=== PATIENT | female | born 1965 | race African-American/Black ===

== ENCOUNTER 2016-08-13 10:07 | Day surgery (SDC) | payer OTHER ==
[~2016-08-13] VITALS: Ht 165.1 cm; Wt 65.6 kg
[~2016-08-13 10:07] MED LIST: IRON325T2 PO; LISI10TA PO; NAPR-576 PO; OMEP20TA PO; PRED5TAB PO
[2016-08-13] MEDS ORDERED: NS 1000P @30 MLS/HR (KVO) IV SCH (11:00)
[2016-08-13 11:16] VITALS: BP 121/87; PULSE 77; RESP 18; TEMP 98.3; O2SAT 97
[2016-08-13] MEDS ORDERED: MILL5PAK (11:23)
[2016-08-13] MEDS ORDERED: AMLO10 PO (11:23)
[2016-08-13] MEDS ORDERED: OMEP20TA PO (11:23)
[2016-08-13] MEDS ORDERED: METH2.5T PO (11:23)
[2016-08-13] MEDS ORDERED: TRAM50TA PO (11:23)
[2016-08-13] MEDS ORDERED: VENTAER INH (11:23)
[2016-08-13] MEDS ORDERED: DICL50TA PO (11:23)
[2016-08-13 11:28] LABS: BASOPHIL % 0.6 % (0.0-2.0); EOSINOPHIL # 0.1 TH/MM3 (0-0.4); HEMATOCRIT 39.3 % (35.0-46.0); HEMO FLAGS DIFF FINAL; LYMPH % 36.9 % (9.0-44.0); LYMPHOCYTE # 1.5 TH/MM3 (1.0-4.8); MEAN CELL VOLUME 93.5 FL (80.0-100.0); MEAN CORPUSCULAR HEMOGLOBIN 31.3 PG (27.0-34.0); MEAN CORPUSCULAR HGB CONC 33.4 % (32.0-36.0); MONO % 12.1 % (0.0-8.0); NEUT % 48.4 % (16.0-70.0); PLATELET COUNT 221 TH/MM3 (150-450); RED CELL DISTRIBUTION WIDTH 13.1 % (11.6-17.2); WHITE BLOOD COUNT 4.1 TH/MM3 (4.0-11.0)
[2016-08-13 11:41] LABS: APTT (PATIENT) 26.4 SEC (24.3-30.1); PROTHROMBIN TIME - PATIENT 11.1 SEC (9.8-11.6)
[2016-08-13 11:57] LABS: BICARBONATE 28.6 MEQ/L (21.0-32.0)
[2016-08-13] MEDS ORDERED: HEPARIN-NS/PF INJ 500 ML ONE (12:06)
[2016-08-13] MEDS ORDERED: diphenhydrAMINE HCL 50 MG/ML VIAL ONE (12:31)
[2016-08-13] MEDS ORDERED: methylPREDNISolone SOD SUCC 125 MG/2 ML VIAL ONE (12:31)
[2016-08-13] MEDS ORDERED: SODIUM CHLORIDE 0.9% FLUSH 10 ML FLUSH PRN (13:00)
[2016-08-13] MEDS ORDERED: MISC INFORMATION XX ONE (13:00)
--- NOTE | 2016-08-13 13:07 | CATHPROC ---
Mas Con Movil HIS Report Study Information Study Number Admission Scheduled Start Study Start 1063Aug 13 2016 10:07AM 08/13/2016 Aug 13 2016 11:56AM [place] [facility] Cardiac Catheterization Admit Source Facility Department Other [facility] - Quality Control Scientist Physician and Clinical Staff Initial Celestino Roe Picker Operatorjerri Tineo RN, Keegan RecordMirtha Arnold,WATER FILTER CLEANER TECH2 Scrub Ronak Redd RCIS(BS) Procedures Performed Procedure Location (Site) Vessel Name Coronary Angiograms LCA Left Coronary Coronary Angiograms RCA Right Coronary LV Gram-hand inj. LV LV Ventricle Equipment Time Ballet Professor Description Size Mfg Part Number Used/Scraped [id number] 12:07 MARQUEZ YAO SWAN NAUN CATHETER FR 7 Used *[id number] TRANSDUCER, TRUWAVE [id number] 11:56 MARQUEZ YAO * Used W/STOCKCOCK *[id number] TRANSDUCER, TRUWAVE [id number] 11:56 MARQUEZ YAO * Used W/STOCKCOCK *[id number] 538-420 *[id number] [id number] *[id number] 11:56 MEDLINE IND[employer] PACK, CCL CUSTOM * Used *[id number] 11:56 Sopogy PACER PEN, SKIN DUAL W/ RULER * Used *[id number] 11:56 miCab MEDICAL WIRE, 3MMJ .035 180CM 180CM Used *[id number] 11:56 NAMIC MANIFOLD, 2 PORT * Used *[id number] 11:56 NAMIC MANIFOLD, 4 PORT * Used *[id number] 11:56 NYCOMED OMNIPAQUE, 350 MG, 150ML 150ML [id number] Used [id number] 11:56 [employer] BLANKET,WARM AIR CCL * Used *[id number] 11:56 TERUMO MEDICAL SHEATH, FR4 TERUMO (10CM) FR 4 [id number] Used 11:56 TERUMO MEDICAL SHEATH, FR7 TERUMO (10CM) FR 7 [id number] Used History: Current Medications Medication Dosage/Unit Route Frequency Last Date/Time Taken NORVASC PREDNISONE NTG SL TRAMADOL History: Allergies Allergy Reaction Lisinopril Contrast Media History: Risk Factors Family History of Hypertension Dyslipidemia Previous ND Previous Heart Failure Premature CAD Yes No Yes No No Prior Valve Prior PCI Prior CABG Surgery No No No Cerebrovascular Peripheral Artery Chronic Lung On Dialysis Diabetes Disease Disease Disease No No No Yes No History: Risk Factors Selection Items Current Smoker History: Symptoms/Diagnosis Selection Items Angina-unstable History: Stress Tests Stress or Imaging Studies Performed Yes Standard Exercise Stress Test No Stress Echo No Stress Test SPECT No Stress Test CMR Stress Test CMR Result Stress Test CMR Ischemia Risk/Extent Yes Positive Intermediate Cardiac CTA Coronary Calcium Score No No History: Other Disease Selection Items HTN History: Other Current Smoker Method Packs a Day Years Used Pack Years Yes Pipe 1 6 6 Labs Hgb (g/dl) Hct (%) RBC (MIL/MM3) WBC (l/cumm) Platelets (thousands) 12.00-18.00 37.00-55.00 4.80-6.20 4.80-10.80 140.00-450.00 13.1 39.3 4.2 4.1 221 PT (sec) PTT (sec) INR (PTT:PT) 9.40-11.40 25.10-32.70 0.50-2.00 11.1 26.4 1 Medication Medication Total Dose (Bolus/Oral) Medication Total Dosage/Unit BENADRYL 25 mg PEPCID 20 mg SOLU-MEDROL 125 mg Medications (Bolus/Oral) Medication Time Given Dosage/Unit Administered By Reason SOLU-MEDROL 08/13/2016 12:32:32 PM 125 mg Keegan Tineo RN 125 mg SOLU-MEDROL given in lab by Keegan Tineo RN in Left Antecubital via Peripheral IV. BENADRYL 08/13/2016 12:33:17 PM 25 mg Keegan Tineo RN 25 mg BENADRYL given in lab by Keegan Tineo RN in Left Antecubital via Peripheral IV. PEPCID 08/13/2016 12:33:57 PM 20 mg Keegan Tineo RN 20 mg PEPCID given in lab by Keegan Tineo RN in Left Antecubital via Peripheral IV. Medication (Drip) Medication Time Given Dosage/Unit Concentration/Unit Diluent (ml) Solution IV Solutions 08/13/2016 12:12:11 PM 0 mL (IV) NaCl .9 IV Solutions given in lab by Keegan Tineo RN in Left Antecubital via Peripheral IV. Pump/Drip Flow = 50 ml/hr using NaCl .9. Initial Case Assessment Cardiovascular HR NIBP 75 118/83 Edema Present Skin color Skin None Normal Warm Dry Circulatory - Right Pulses Dorsalis Pedis Femoral 3 3 Scale (0,1,2,3,4,d) Circulatory - Left Pulses Dorsalis Pedis Femoral 3 3 Scale (0,1,2,3,4,d) Neurological State Oriented to time-place- Alert Moves all extremities person Respiration - General Respiration Rate SpO2 (%) (B/min) 17 100 Final Case Assessment Cardiovascular HR NIBP 63 124/86 Edema Present Skin color Skin None Normal Warm Dry Circulatory - Right Pulses Dorsalis Pedis Femoral 3 3 Scale (0,1,2,3,4,d) Circulatory - Left Pulses Dorsalis Pedis Femoral 3 3 Scale (0,1,2,3,4,d) Neurological State Oriented to time-place- Alert Moves all extremities person Respiration - General Respiration Rate SpO2 (%) (B/min) 15 99 Chronological Log Time Study Chronological Log 12:05:48 Patient arrived via Bed. Vitals capture started with the following parameters, Patient=Adult, Interval=5 min, Initial Pr mnfynw=338 mmHg, 12:10:51 Deflation Rate=5 mmHg 12:11:00 NIBP STAT measurement started. 12:11:21 Reference ECG taken 12:11:29 HR=75 bpm, XEMY=814/83 mmhg, HyA3=542.0 %, Resp=17 B/min, Pain=0, Sanam=10, Zhong=2 12:11:59 Patient Name, D.O.B, / Armband Verified By R.N. 12:12:00 Consent signed by the physician and the patient and verified by the Quality Control Scientist staff. 12:12:00 Pre-op and post- op instructions given; patient acknowledges understanding of instructions. 12:12:03 Patient has been NPO for More than 6Hrs. 12:12:04 Skin Breakdown- 12:12:05 Patient Warmer Placed on the Table. 12:12:07 Agapito Prominences Protected 12:12:10 A # 20 IV was noted in the Antecubital (left). Grade = 0 IV Solutions given in lab by Keegan Tineo RN in Left Antecubital via Peripheral IV. Pump/Drip F low = 50 ml/hr using NaCl 12:12:11 .9. 12:12:11 History and physical on the chart or being dictated. Assessment: Initial Case, HR=75 BPM, HGIC=650/83 mmhg, Edema=None, Color=Normal, Skin = Warm, D ry Right Pulses: Stewart Ped=3, Femoral=3 12:12:12 Left Pulses: Stewart Ped=3, Femoral=3 Neurological: State=Alert, Ox3, DIAZ Respiration: Resp=17 B/min, SjS8=484 % 12:16:22 HR=61 bpm, NIGD=182/81 mmhg, YxT0=895.0 %, Resp=19 B/min, Pain=0, Sanam=10, Zhong=2 12:20:22 Bilateral groins prepped with 2% chlorhexidine, and with a 3 min. waiting time. 12:20:25 Pressure channel 1 zeroed. 12:21:25 HR=61 bpm, IEJY=707/76 mmhg, SpO2=98.0 %, Resp=20 B/min, Pain=0, Sanam=10, Zhong=2 12:23:30 paged 12:26:24 HR=64 bpm, APRK=836/78 mmhg, VoH5=549.0 %, Resp=17 B/min, Pain=0, Sanam=10, Zhong=2 12:31:23 HR=62 bpm, UCWY=462/77 mmhg, SpO2=99.0 %, Resp=18 B/min, Pain=0, Sanam=10, Zhong=2 12:32:32 125 mg SOLU-MEDROL given in lab by Keegan Tineo RN in Left Antecubital via Peripheral IV. 12:33:17 25 mg BENADRYL given in lab by Keegan Tineo RN in Left Antecubital via Peripheral IV. Time Out. Correct patient, correct procedure,correct physician, power injector loaded ornot shmuel ded with contrast with 12:33:34 surgical team present. Time Out Concurred by , individual staff and DIGESTER OPERATOR HELPER in procedure 12:33:55 Case Start 12:33:57 20 mg PEPCID given in lab by Keegan Tineo RN in Left Antecubital via Peripheral IV. 12:34:43 Access site was Left Femoral Artery. 12:34:48 A SHEATH, FR4 TERUMO (10CM) FR 4 was advanced into the Fem Art (right) using the Modified S eldinger technique. 12:35:41 Access site was ABOVE ARE ACC RESPONSES. 12:36:02 A SHEATH, FR7 TERUMO (10CM) FR 7 was advanced into the Fem Vein (right) using the Modified Seldinger technique. 12:36:24 HR=64 bpm, PARY=590/87 mmhg, GmI9=825.0 %, Resp=17 B/min, Pain=0, Sanam=10, Zhong=2 12:37:02 Saturation: Site=FA (Femoral Artery) , O2=97 %, Hgb=13.1 gm/dl, Condition=Condition 1. Used in calculation. 12:37:37 A SWAN NAUN CATHETER FR 7 was advanced over a wire. contrast was used for injections. Recorded Pressure: PCW, HR=69, Condition=Condition 1 12:39:07 (Pulmonary Capillary Wedge) PCW Recorded Pressure: MPA, HR=69, Condition=Condition 1 12:39:22 (Main Pulmonary Artery) MPA 30/10/14 Recorded Pressure: RV, HR=69, Condition=Condition 1 12:40:09 (Right Ventricle) RV Recorded Pressure: RA, HR=68, Condition=Condition 1 12:40:26 (Right Atrium) RA 12:41:02 Ubly Naun Catheter Removed 12:41:25 HR=64 bpm, XJZH=989/92 mmhg, SpO2=98.0 %, Resp=16 B/min, Pain=0, Sanam=10, Zhong=2 Recorded Pressure: LV, HR=78, Condition=Condition 1 12:42:53 (Left Ventricle) LV 136/5/20 12:43:10 The LV was manually injected with 10 cc's and visualized. OMNIPAQUE, 350 MG, 150ML 150ML us ed. Recorded Pressure: LV, Ao, HR=68, Condition=Condition 1 12:43:12 (Left Ventricle) LV 144/6/18, (Aorta) Ao 144/76/104 12:43:32 The RCA was injected and visualized at various angles. OMNIPAQUE, 350 MG, 150ML 150ML used . 12:44:10 Catheter was removed 12:44:11 A JL 4.0 INFINITI CATHETER FR 4 was advanced over a wire. contrast was used for injections. 12:44:40 Saturation: Site=PA (Pulmonary Artery) , O2=74.3 %, Hgb=13.1 gm/dl, Condition=Condition 1. Used in calculation. 12:45:00 Saturation: Site=RA (Right Atrium) , O2=78.1 %, Hgb=13.1 gm/dl, Condition=Condition 1. Used in calculation. 12:45:21 The LCA was injected and visualized at various angles. OMNIPAQUE, 350 MG, 150ML 150ML used . Recorded Pressure: Ao, HR=78, Condition=Condition 1 12:45:24 (Aorta) Ao 130/81/103 12:46:26 HR=74 bpm, XEKH=722/91 mmhg, SpO2=94.0 %, Resp=20 B/min, Pain=0, Sanam=10, Zhong=2 12:47:13 Case End 12:48:35 Catheter(s) removed without difficulty 12:49:31 Sheath removed; pressure applied to access site. 12:51:27 HR=76 bpm, LCKD=176/90 mmhg, GeV1=235.0 %, Resp=19 B/min 12:56:29 HR=73 bpm, KBRN=020/87 mmhg, QfQ6=043.0 %, Resp=19 B/min, Pain=0, Sanam=10, Zhong=2 12:58:56 Venous Sheath removed; pressure applied to access site. 13:01:28 HR=70 bpm, ZYGW=061/86 mmhg, SiY9=763.0 %, Resp=18 B/min, Pain=0, Sanam=10, Zhong=2 13:03:44 Sterile dressing applied to site 13:03:45 No case complications noted. Assessment: Final Case, HR=63 BPM, KOOZ=059/86 mmhg, Edema=None, Color=Normal, Skin = Warm, Dr y Right Pulses: Stewart Ped=3, Femoral=3 13:03:53 Left Pulses: Stewart Ped=3, Femoral=3 Neurological: State=Alert, Ox3, DIAZ Respiration: Resp=15 B/min, SpO2=99 % 13:05:14 Vitals capture stopped. 13:05:47 Cine recording checked. 13:05:49 Bedside Report will be given. 13:05:52 A Left and Right Heart Cath was performed. 13:05:53 Patient moved to stretcher 13:05:57 Clinical correlaton risk stratification. End Study - Contrast Media Used In Study Contrast Total Opened (mL) Total Used (mL) Total Wasted (mL) Omnipaque 25 25 0 End Study - Radiation Exposure Fluoro Time (minutes) 2.3 End Study - Patient Disposition Complications Transferred To No Telemetry Bed
[2016-08-13] MEDS ORDERED: IOHEXOL 350 MG/ML 50 ML BTL (for Cath Lab) OTHER ONE (14:59)
[2016-08-13] MEDS ORDERED: SODIUM CHLORIDE 0.9% FLUSH 10 ML FLUSH SCH (21:00)
--- NOTE | 2016-08-14 10:20 | MA ---
cc: JOSE HERZOG M.D. DATE 08/13/2016 PROCEDURE PERFORMED Right heart catheterization, left heart catheterization, left ventriculography, coronary angiography INDICATIONS New onset cardiac symptoms of chest pain at rest associated with dyspnea, unstable angina, [place] Cardiovascular Society class 4 angina, congestive heart failure and systemic lupus erythematosus. [place] Heart Association class 4 tobacco use, multiple cardiac risk factors and coronary artery disease. Also, moderate sized reversible defect in the anteroapical wall, small fixed defect in the anterior wall and the inferoapical wall with an EF of 57% by gated SPECT. Mild mitral regurgitation. Also hypertension. PROCEDURAL STATEMENT The patient was brought into the cardiac catheterization laboratory, prepped and draped in the usual sterile fashion. 10 cc's of 1% lidocaine was used to locally anesthetize the right common femoral artery and right femoral vein. The patient was pretreated with 50 mg of IV Benadryl, 20 mg of IV Pepcid and 125 mg of IV Solu-Medrol due to contrast allergy. Right heart catheterization was performed first with the following findings: The pulmonary capillary wedge pressure 14/16-10 PA pressure 22/8-15 RV pressure 23/1-9. RA pressure 9/7-5 FA sat on room air 97%. PA sat on room air 74.3%. RA sat on room air 78.1%. Cardiac output by Ranjana 5.3 liters per minute. Cardiac index by Ranjana 3.2 liters per meter squared per minute. SVR was 1474.7. Left heart catheterization was then performed with a 4-Icelandic JR-4 and JL-4 catheter with the following findings LV pressures were 135/11/50. Ejection fraction 65%. The right coronary artery is dominant. It is tortuous and has a very subtle amount of plaque at a 90 degrees bend in the mid segment up to 5-10% angiographically and also at another 80 degrees bend in the qog-hs-iobszc segment of 5-10% angiographically. The left main coronary has no significant disease angiographically. Left circumflex vessels has no significant disease angiographically. The first obtuse marginal vessel is a large vessel approaching the apex which then trifurcates into the vgt-qh-qzmipa segment. There is no significant obstructive disease. There is a small ramus intermedius vessel probably 1 mm in diameter and no significant obstructive disease. LAD has an ostial 10-20% stenosis. It is a transapical vessel with no significant disease otherwise. The first diagonal artery is a medium-sized vessel with no significant obstructive disease. CONCLUSION 1. Angiographically mild two-vessel coronary artery disease in a right dominant system as detailed above. 2. Normal LV systolic function, ejection fraction 65%. 3. Normal right heart cath pressures as detailed above. 4. Strongly recommend smoking cessation and medical management Of coronary artery disease cardiac risk factor modifications. MD CLARKE Borges/JOYA /12:53 PM /10:05 AM
--- NOTE | 2016-08-14 21:53 | EKG ---
Date Performed: 08/13/2016 Time Performed: 11:09:14 PTAGE: 50 years EKG: Sinus rhythm . Poor R wave progression - probable normal variant Since previous tracing, no significant change not ed Borderline ECG PREVIOUS TRACING : 11/20/2012 11.13 DOCTOR: Jono Johnson Interpretating Date/Time 08/14/2016 21:51:34
== END 2016-08-13 16:12 | disposition home or self-care (01) ==
LOC: HDOC 10:07 → HDIC 10:10 → HDOC 16:12
PROVIDERS: ATTEND Internal Medicine Interventional Cardiology
DX: I25.110 Atherosclerotic heart disease of native coronary artery with unstable angina pectoris (principal); I34.0 Nonrheumatic mitral (valve) insufficiency; I11.0 Hypertensive heart disease with heart failure; I50.9 Heart failure, unspecified; M32.9 Systemic lupus erythematosus, unspecified; F17.210 Nicotine dependence, cigarettes, uncomplicated
CPT/HCPCS: 80048; 85025; 85610; 85730; 93005; 93456; C1769; C1893; J1200; J1644; J2930; Q9967